=== PATIENT | female | born 1995 | race Caucasian/White ===

== ENCOUNTER 2017-03-14 17:51 | Emergency (ER) | payer SELFPAY ==
[~2017-03-14] VITALS: Ht 157.5 cm; Wt 65.5 kg
[2017-03-14 18:46] VITALS: BP 118/78
[2017-03-14] MEDS ORDERED: BACLOFEN 10 MG TAB PO ONE (19:45)
[2017-03-14] MEDS ORDERED: IBUPROFEN 600 MG TAB PO ONE (19:45)
== END 2017-03-14 20:29 | disposition home or self-care (01) ==
LOC: ER 17:54
DX: S39.012A Strain of muscle, fascia and tendon of lower back, initial encounter (principal); S50.02XA Contusion of left elbow, initial encounter; S00.03XA Contusion of scalp, initial encounter; S40.812A Abrasion of left upper arm, initial encounter; F17.210 Nicotine dependence, cigarettes, uncomplicated
CPT/HCPCS: 70450; 72100; 73080